=== PATIENT | female | born 1980 | race Asian ===

== ENCOUNTER 2017-05-18 19:47 | Emergency (ER) | payer BC ==
[~2017-05-18] VITALS: Ht 160 cm; Wt 79.0 kg
[2017-05-18] MEDS ORDERED: KETOROLAC 60MG/2ML VIAL IM STA (20:17)
[2017-05-18 21:05] LABS: CLARITY URINE CLEAR (CLEAR); COLOR URINE YELLOW (YELLOW); GLUCOSE URINE NEGATIVE (NEGATIVE); KETONES URINE NEGATIVE (NEGATIVE); LEUKOCYTE ESTERASE URINE NEGATIVE (NEGATIVE); NITRITE URINE NEGATIVE (NEGATIVE); OCCULT BLOOD URINE 3+ (NEGATIVE); PROTEIN URINE TRACE (NEGATIVE); SPECIFIC GRAVITY URINE 1.027 (1.005-1.030); UROBILINOGEN URINE 0.2 E.U./dL (0.2-1.0)
[2017-05-18 23:30] VITALS: BP 127/87
== END 2017-05-18 23:45 | disposition home or self-care (01) ==
LOC: ER 19:47
DX: N23 Unspecified renal colic (principal); J45.909 Unspecified asthma, uncomplicated
CPT/HCPCS: 74176; 81001; 81025; 96372; 99285; J1885; Z7610

== ENCOUNTER → 2018-01-29 | Outpatient (CLI) | payer BC ==
[2018-01-29 17:03] LABS: BASOPHILS % 0.6 % (0.0-2.0); EOSINOPHILS % 1.1 % (0.0-5.0); HEMATOCRIT. 39.2 % (36.0-48.0); HEMOGLOBIN. 13.1 g/dL (12.0-16.0); MEAN CORPUSCULAR HEMOGLOBIN 28.6 pg (28.0-32.0); MEAN CORPUSCULAR VOLUME 85.6 fL (81.0-99.0); MEAN PLATELET VOLUME 8.5 fl (7.4-10.4); MONOCYTES % 5.8 % (2.0-8.0); NEUTROPHILS % 69.5 % (40.0-76.0); PLATELET 286 x1000/uL (130-400); RED BLOOD CELL COUNT 4.58 mill/uL (4.2-5.4); RED CELL DISTRIBUTION WIDTH 13.5 % (11.6-14.6)
[2018-01-29 17:34] LABS: CLARITY URINE CLEAR (CLEAR); COLOR URINE ORANGE (YELLOW); KETONES URINE NEGATIVE (NEGATIVE); LEUKOCYTE ESTERASE URINE NEGATIVE (NEGATIVE); NITRITE URINE NEGATIVE (NEGATIVE); OCCULT BLOOD URINE 3+ (NEGATIVE); PROTEIN URINE NEGATIVE (NEGATIVE); SPECIFIC GRAVITY URINE 1.023 (1.005-1.030); UROBILINOGEN URINE 0.2 E.U./dL (0.2-1.0)
[2018-01-29 18:00] LABS: CHLORIDE 106 mEq/L (98-107)
[2018-01-29 18:06] LABS: PHOSPHORUS 2.8 mg/dL (2.5-4.9)
[2018-01-29 18:07] LABS: LDL CHOLESTEROL 128 mg/dL (5-100)
[2018-01-29 18:08] LABS: HDL CHOLESTEROL 58 mg/dL (40-59)
[2018-01-29 21:15] LABS: HEPATITIS B SURFACE AB > 1000.0 mIU/mL
[2018-01-29 21:24] LABS: HEPATITIS B SURFACE ANTIGEN NEGATIVE
[2018-01-29 21:53] LABS: HEPATITIS B CORE AB IGM NEGATIVE
== END | disposition home or self-care (01) ==
LOC: LAB 15:55
PROVIDERS: ATTEND Internal Medicine
DX: J45.909 Unspecified asthma, uncomplicated (principal); N20.0 Calculus of kidney; R79.89 Other specified abnormal findings of blood chemistry
CPT/HCPCS: 36415; 71046; 80053; 80061; 81003; 83036; 83735; 84100; 84443; 85025; 85651; 86592; 86705; 86706; 86803; 87186; 87340